=== PATIENT | female | born 2005 | race Caucasian/White ===

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

== ENCOUNTER 2024-12-23 12:26 | Outpatient (CLI) | payer BC, SELFPAY ==
[2024-12-23 15:09] LABS: Chlamydia DNA Amplified* NOT DETECTED (No Detected); GC DNA Amplified* NOT DETECTED (No Detected)
== END 2024-12-23 12:27 | disposition home or self-care (01) ==
PROVIDERS: Visit Provider Nurse Practitioner Family
DX: R30.0 Dysuria (principal); R39.15 Urgency of urination
CPT/HCPCS: 87086; 87491; 87591

== ENCOUNTER 2025-02-17 17:05 | Outpatient (CLI) | payer BC, SELFPAY ==
[2025-02-17 23:54] LABS: Chlamydia DNA Amplified* NOT DETECTED (No Detected); GC DNA Amplified* NOT DETECTED (No Detected)
== END 2025-02-17 17:06 | disposition home or self-care (01) ==
LOC: NFLDUCREF 17:05
PROVIDERS: Visit Provider Family Medicine
DX: R30.0 Dysuria (principal); Z11.3 Encounter for screening for infections with a predominantly sexual mode of transmission
CPT/HCPCS: 87491; 87591

== ENCOUNTER 2025-04-09 12:54 | Outpatient (CLI) | payer BC, SELFPAY | END 2025-04-09 12:55 | disposition home or self-care (01) | LOC: NFLDREF 04-12 06:46 | DX: R30.0 Dysuria (principal); N39.0 Urinary tract infection, site not specified | CPT/HCPCS: 87086 ==

== ENCOUNTER 2025-05-05 15:11 | Outpatient (CLI) | payer BC, SELFPAY ==
[2025-05-05 20:42] LABS: Chlamydia DNA Amplified* NOT DETECTED (No Detected); GC DNA Amplified* NOT DETECTED (No Detected)
== END 2025-05-05 15:12 | disposition home or self-care (01) ==
LOC: NFLDUCREF 15:12
PROVIDERS: Visit Provider Physician Assistant Surgical
DX: R33.9 Retention of urine, unspecified (principal); Z11.3 Encounter for screening for infections with a predominantly sexual mode of transmission
CPT/HCPCS: 87086; 87491; 87591

== ENCOUNTER 2025-07-21 12:49 | Outpatient (CLI) | payer BC, SELFPAY ==
[2025-07-21 23:20] LABS: Chlamydia DNA Amplified* NOT DETECTED (No Detected); GC DNA Amplified* NOT DETECTED (No Detected)
== END 2025-07-21 12:50 | disposition home or self-care (01) ==
LOC: NFLDUCREF 12:49
PROVIDERS: Visit Provider Physician Assistant
DX: R30.0 Dysuria (principal)
CPT/HCPCS: 87491; 87591